=== PATIENT | female | born 1965 | race Two or more races ===

== ENCOUNTER 2023-07-12 21:20 | Emergency (ER) | payer OTHER ==
[~2023-07-12] VITALS: Ht 162.6 cm; Wt 72.6 kg
[2023-07-12 21:39] VITALS: TEMP 98.1
[2023-07-12] MEDS ORDERED: ACETAMINOPHEN ES 500 MG TABLET ONE (22:40)
[2023-07-12] MEDS ORDERED: CYCLOBENZAPRINE 10 MG TABLET ONE (22:40)
[2023-07-12] MEDS: CYCLOBENZAPRINE 10 MG TABLET PO ONE (22:44)
[2023-07-12] MEDS: ACETAMINOPHEN ES 500 MG TABLET PO ONE (22:44)
[2023-07-12 23:18] VITALS: BP 148/78; O2SAT 99
== END 2023-07-12 23:18 | disposition home or self-care (01) ==
LOC: ER 21:22
DX: S09.90XA Unspecified injury of head, initial encounter (principal); M25.531 Pain in right wrist; I10 Essential (primary) hypertension; E11.9 Type 2 diabetes mellitus without complications; Y04.2XXA Assault by strike against or bumped into by another person, initial encounter; Y93.89 Activity, other specified; Y92.89 Other specified places as the place of occurrence of the external cause; Y99.8 Other external cause status
CPT/HCPCS: 70450-TC; 73110; 73130-TC